=== PATIENT | male | born 1990 | race Caucasian/White ===

== ENCOUNTER 2016-08-06 03:14 | Emergency (ER) | payer BC ==
[2016-08-06 03:22] VITALS: BP 133/55
[2016-08-06] MEDS ORDERED: Sodium Chloride 0.9% 10 ML Syringe FLUSH PRN (03:57)
[2016-08-06] MEDS ORDERED: fentaNYL 100 MCG/2 ML SDV IVPUSH ONE (03:57)
--- NOTE | 2016-08-06 03:59 | EDM.PDOC ---
ED HPI GENERAL MEDICAL PROBLEM - General Chief Complaint: General Stated Complaint: L) shoulder dislocation Time Seen by Provider: 08/06/16 03:21 Source of Information: Reports: Patient History Limitations: Reports: No limitations - History of Present Illness INITIAL COMMENTS - FREE TEXT/NARRATIVE: Patient says he has long history of shoulder dislocation issues involving left shoulder. Said he "moved it wrong" tonight and shoulder dislocated. Prefers to not be given any medications, and said he just needs someone to "pull it" and fix it. Complains of pain in left shoulder, limited ROM. No numbness in arm. No other complaints. Smells of alcohol and confirms that he had alcohol earlier this evening. Left Shoulder Pain Score (Numeric/FACES): 10 - Related Data Allergies Allergy/AdvReac Type Severity Reaction Status Date / Time No Known Allergies Allergy Verified 08/06/16 03:18 Home Meds: Home Meds Calcium Carbonate [Tums Extra Strength] 1,500 mg PO ASDIRECTED PRN 07/13/13 [ History] Omeprazole [Prilosec] 20 mg PO QAM 07/20/13 [History] Past Medical History Gastrointestinal History: Reports: GERD Musculoskeletal History: Reports: Other (see below) (shoulder dislocations) Social & Family History - Tobacco Use Years of Tobacco use: 8 (Previous use of 1 pack per day) Second Hand Smoke Exposure: Yes - Alcohol Use Days Per Week of Alcohol Use: 1 Number of Drinks Per Day: 3 Total Drinks Per Week: 3 - Recreational Drug Use Recreational Drug Use: Yes Drug Use in Last 12 Months: Yes Recreational Drug Type: Reports: Marijuana/Hashish Recreational Drug Use Frequency: Weekly - Living Situation & Occupation Living situation: Reports: single, with significant other (Fiance) Occupation: employed ([employer]) ED ROS GENERAL - Review of Systems Review Of Systems: ROS reveals no pertinent complaints other than HPI. ED EXAM, GENERAL - Physical Exam Exam: See Below Exam Limited By: Physical impairment (Patient guarding left arm/shoulder) General Appearance: alert, WD/WN, anxious, moderate distress Eye Exam: bilateral eye: EOMI, PERRL Respiratory/Chest: no respiratory distress Peripheral Pulses: 2+: radial (L), radial (R) Extremities: normal capillary refill, other (Left shoulder appears dislocated. Arm NVI. ) Neurological: alert, oriented, normal gait Psychiatric: anxious Skin Exam: Warm, Dry, Intact, Normal color Course - Vital Signs Last Recorded V/S: Last Vital Signs Temp 36.7 C 08/06/16 03:21 Pulse 86 08/06/16 03:21 Resp 22 H 08/06/16 03:21 BP 133/55 L 08/06/16 03:21 Pulse Ox 97 08/06/16 03:21 - Orders/Labs/Meds Orders: Active Orders 24 hr Category Date Time Status Shoulder 1V Lt [CR] Stat Exams 08/06/16 03:22 Taken Sodium Chloride 0.9% [Saline Flush] Med 08/06/16 03:57 Ordered 10 ml FLUSH ASDIRECTED PRN Saline Lock Insert [OM.PC] Stat Oth 08/06/16 03:57 Ordered Medication Orders Sodium Chloride (Saline Flush) 10 ml FLUSH ASDIRECTED PRN PRN Reason: Keep Vein Open Meds: Medications Generic Name Dose Route Start Last Admin Trade Name Freq PRN Reason Stop Dose Admin Sodium Chloride 10 ml 08/06/16 03:57 Saline Flush FLUSH ASDIRECTED PRN Keep Vein Open Discontinued Medications Generic Name Dose Route Start Last Admin Trade Name Freq PRN Reason Stop Dose Admin Fentanyl 100 mcg 08/06/16 03:57 08/06/16 04:01 Sublimaze IVPUSH 08/06/16 03:58 100 mcg ONETIME ONE Administration - Radiology Interpretation Free Text/Narrative:: Xray confirmed dislocated shoulder. - Re-Assessments/Exams Free Text/Narrative Re-Assessment/Exam: 08/06/16 04:12 Fentanyl given to help with pain and relaxation. Patient placed prone with weights attached to left hand. Shoulder reduced with help of scapular manipulation. Patient placed in immobilizer. Extensive precautions given to patient, including wearing immobilizer faithfully and following up with a primary care provider. He is aware of the high likelihood of dislocating the shoulder again if he does not wear the immobilizer appropriately as well as if he does not follow up with orthopedics. Departure - Departure Time of Disposition: 05:00 Disposition: Home, Self-Care 01 Condition: good Clinical Impression: Shoulder dislocation, recurrent Qualifiers: Laterality: left Qualified Code(s): M24.412 - Recurrent dislocation, left shoulder Instructions: Shoulder Dislocation, [id number], How to Use a Shoulder Immobilizer Forms: ED Department Discharge, Return to Work/School Form Additional Instructions: Wear shoulder immobilizer. Make appointment to follow up with local clinic for recheck and referral to Ortho as well as arrangement for higher quality and more comfortable immobilizer. Do not take off the immobilizer until Ortho tells you as you have much higher likelihood of re-dislocating shoulder. Ibuprofen or Tylenol or Aleve for pain. Ice PRN. - My Orders Last 24 Hours: My Active Orders 08/06/16 03:22 Shoulder 1V Lt [CR] Stat 08/06/16 03:57 Sodium Chloride 0.9% [Saline Flush] 10 ml FLUSH ASDIRECTED PRN Saline Lock Insert [OM.PC] Stat - Assessment/Plan Last 24 Hours: My Active Orders 08/06/16 03:22 Shoulder 1V Lt [CR] Stat 08/06/16 03:57 Sodium Chloride 0.9% [Saline Flush] 10 ml FLUSH ASDIRECTED PRN Saline Lock Insert [OM.PC] Stat
== END 2016-08-06 04:50 | disposition home or self-care (01) ==
LOC: LL.ED 03:14
DX: M24.412 Recurrent dislocation, left shoulder (principal); K21.9 Gastro-esophageal reflux disease without esophagitis
CPT/HCPCS: 23650; 73020; 96374; 99283; J3010

== ENCOUNTER 2017-05-21 14:49 | Emergency (ER) | payer BC, OTHER ==
[2017-05-21] MEDS ORDERED: Morphine 10 MG/ML Syringe IVPUSH ONE (14:56)
[2017-05-21] MEDS ORDERED: Ondansetron 4 MG/2 ML SDV IVPUSH ONE (14:56)
[2017-05-21] MEDS ORDERED: Sodium Chloride 0.9% 10 ML Syringe FLUSH PRN (14:57)
[2017-05-21] MEDS ORDERED: fentaNYL 100 MCG/2 ML SDV IVPUSH ONE (15:24)
[2017-05-21] MEDS ORDERED: Ketorolac 30 MG/ML SDV IVPUSH ONE (15:49)
--- NOTE | 2017-05-21 15:54 | EDM.PDOC ---
ED HPI GENERAL MEDICAL PROBLEM - General Chief Complaint: Upper Extremity Injury/Pain Stated Complaint: left shoulder pain/dislocation Time Seen by Provider: 05/21/17 15:18 Source of Information: Reports: Patient History Limitations: Reports: No Limitations - History of Present Illness INITIAL COMMENTS - FREE TEXT/NARRATIVE: Patient with history of recurrent left shoulder dislocations was at work today and popped shoulder out of place while pushing a cart. This has happened multiple times to him since his original injury that occurred in high school while playing two handed football in gym class. No numbness or tingling of involved limb. Has pain around left shoulder that is nonradiating. No other complaints. Left Shoulder Pain Score (Numeric/FACES): 8 - Related Data Allergies Allergy/AdvReac Type Severity Reaction Status Date / Time No Known Allergies Allergy Verified 05/21/17 14:50 Home Meds: Home Meds Calcium Carbonate [Tums Extra Strength] 1,500 mg PO ASDIRECTED PRN 07/13/13 [ History] Omeprazole [Prilosec] 20 mg PO QAM 07/20/13 [History] Past Medical History Gastrointestinal History: Reports: GERD Musculoskeletal History: Reports: Other (See Below) Other Musculoskeletal History: reoccurant L) shoulder dislocation Social & Family History - Tobacco Use Smoking Status *Q: Current Every Day Smoker Years of Tobacco use: 8 (Previous use of 1 pack per day) Packs/Tins Daily: 1 Second Hand Smoke Exposure: Yes - Caffeine Use Caffeine Use: Reports: Energy Drinks, Soda - Alcohol Use Days Per Week of Alcohol Use: 1 Number of Drinks Per Day: 3 Total Drinks Per Week: 3 - Recreational Drug Use Recreational Drug Use: Yes Drug Use in Last 12 Months: Yes Recreational Drug Type: Reports: Marijuana/Hashish Recreational Drug Use Frequency: Weekly - Living Situation & Occupation Living situation: Reports: Single, with Significant Other Occupation: Employed Review of Systems - Review of Systems Review Of Systems: ROS reveals no pertinent complaints other than HPI. ED EXAM, GENERAL - Physical Exam Exam: See Below Exam Limited By: No Limitations General Appearance: Alert, WD/WN, Moderate Distress, Other (protecting left arm/ carrying weight of arm using his right arm. ) Eye Exam: Bilateral Eye: EOMI, PERRL Head: Atraumatic, Normocephalic Neck: Normal Inspection, Supple, Non-Tender, Full Range of Motion Respiratory/Chest: No Respiratory Distress Cardiovascular: Normal Peripheral Pulses Peripheral Pulses: 2+: Radial (L), Radial (R) Extremities: Normal Capillary Refill, Other (Deformity of left shoulder suggesting dislocation) Neurological: Alert, Oriented, Normal Cognition, Normal Gait Psychiatric: Anxious Skin Exam: Warm, Dry, Intact, Normal Color ED TRAUMA EXTREMITY PROCEDURES - Joint Reduction Site: Shoulder (L) Sedation: Other (Fentanyl 100mg IV) Pre-Procedure NV Status: Normal Post-Procedure NV Status: Normal Technique: Other (Raf's technique) Number of Attempts: 1 Post-Reduction Imaging: Completely Reduced Joint Reduction Complications: No Course - Orders/Labs/Meds Orders: Active Orders 24 hr Category Date Time Status Shoulder 1V Lt [CR] Stat Exams 05/21/17 14:56 Taken Shoulder 1V Lt [CR] Stat Exams 05/21/17 15:36 Ordered Sodium Chloride 0.9% [Saline Flush] Med 05/21/17 14:57 Active 10 ml FLUSH ASDIRECTED PRN Saline Lock Insert [OM.PC] Routine Oth 05/21/17 14:57 Ordered Medication Orders Sodium Chloride (Saline Flush) 10 ml FLUSH ASDIRECTED PRN PRN Reason: Keep Vein Open Last Admin: 05/21/17 15:18 Dose: 10 ml Meds: Medications Generic Name Dose Route Start Last Admin Trade Name Freq PRN Reason Stop Dose Admin Sodium Chloride 10 ml 05/21/17 14:57 05/21/17 15:18 Saline Flush FLUSH 10 ml ASDIRECTED PRN Administration Keep Vein Open Discontinued Medications Generic Name Dose Route Start Last Admin Trade Name Freq PRN Reason Stop Dose Admin Fentanyl 100 mcg 05/21/17 15:24 05/21/17 15:27 Sublimaze IVPUSH 05/21/17 15:25 100 mcg ONETIME ONE Administration Ketorolac Tromethamine 30 mg 05/21/17 15:49 05/21/17 15:52 Toradol IVPUSH 05/21/17 15:50 30 mg ONETIME ONE Administration Morphine Sulfate 5 mg 05/21/17 14:56 05/21/17 15:03 Morphine IVPUSH 05/21/17 14:57 5 mg ONETIME ONE Administration Ondansetron HCl 4 mg 05/21/17 14:56 05/21/17 15:03 Zofran IVPUSH 05/21/17 14:57 4 mg ONETIME ONE Administration - Radiology Interpretation Free Text/Narrative:: Xray showed anterior dislocation of left shoulder. Postreduction films confirmed successful reduction of dislocation. - Re-Assessments/Exams Free Text/Narrative Re-Assessment/Exam: 05/21/17 16:14 Patient has sling at home that he can use for the next week to help protect the shoulder joint. Work restriction form filled out and given to patient. He is to follow up next week with primary provider for recheck. Departure - Departure Time of Disposition: 15:54 Disposition: Home, Self-Care 01 Condition: Good Clinical Impression: Shoulder dislocation, recurrent Qualifiers: Laterality: left Qualified Code(s): M24.412 - Recurrent dislocation, left shoulder - Discharge Information Instructions: Shoulder Dislocation, [id number] Referrals: PCP,None [Primary Care Provider] - Forms: ED Department Discharge Additional Instructions: Wear sling for comfort and protection for the next week. Recheck with primary clinic next or Wednesday. Tylenol or Ibuprofen or Aleve for pain as needed. Ice affected area frequently to help with inflammation and pain. - My Orders Last 24 Hours: My Active Orders 05/21/17 14:56 Shoulder 1V Lt [CR] Stat 05/21/17 14:57 Sodium Chloride 0.9% [Saline Flush] 10 ml FLUSH ASDIRECTED PRN Saline Lock Insert [OM.PC] Routine 05/21/17 15:36 Shoulder 1V Lt [CR] Stat - Assessment/Plan Last 24 Hours: My Active Orders 05/21/17 14:56 Shoulder 1V Lt [CR] Stat 05/21/17 14:57 Sodium Chloride 0.9% [Saline Flush] 10 ml FLUSH ASDIRECTED PRN Saline Lock Insert [OM.PC] Routine 05/21/17 15:36 Shoulder 1V Lt [CR] Stat
[2017-05-21 16:28] VITALS: BP 125/66
== END 2017-05-21 16:10 | disposition home or self-care (01) ==
LOC: LL.ED 14:49
DX: M24.412 Recurrent dislocation, left shoulder (principal); F17.210 Nicotine dependence, cigarettes, uncomplicated
CPT/HCPCS: 23650; 73020; 96374; 96375; 99284; J1885; J2270; J2405; J3010; J7050

== ENCOUNTER 2017-10-14 07:41 | Emergency (ER) | payer BC, OTHER ==
--- NOTE | 2017-10-14 08:17 | EDM.PDOC ---
ED HPI GENERAL MEDICAL PROBLEM - General Chief Complaint: Upper Extremity Injury/Pain Stated Complaint: left thumb/hand pain Time Seen by Provider: 10/14/17 08:10 Source of Information: Reports: Patient, Family (Mother), Old Records ([facility] chart/EMR) History Limitations: Reports: No Limitations - History of Present Illness INITIAL COMMENTS - FREE TEXT/NARRATIVE: The patient drove himself to the emergency room via private automobile for evaluation of persistent 7/10 left thumb pain with movement with constant 3/10 throbbing type pain at rest. the patient landed on his left thumb on 10/08 at an unknown time while riding [employer] with a friend. He also had a similar injury when he tripped carrying his niece on his shoulders at 19:00 hours on 10/11. Minimal head injury at that time with no history of loss of consciousness, change in mental status, headaches, visual changes, nausea, neck/back pain, paresthesias, other injury or neurologic deficits. No recent history of abdominal pain, heartburn, nausea, diarrhea, melena, gross hematochezia, or any food intolerance, including fatty foods, etc.. The patient also denies any recent fever, cough, wheezing, dyspnea, etc.. He has not taken any medications for his symptoms during the last 48 hours with previous when necessary ibuprofen use. Onset: Unknown/Unsure Onset Date: 10/08/17 Duration: Constant Location: Reports: Upper Extremity, Left. 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 Denies: Cholelithiasis, Chronic Constipation, Chronic Diarrhea, Fecal Incontinence, Gastritis, GI Bleed, Hepatitis, Jaundice, Pancreatitis, PUD Musculoskeletal History: Reports: Fracture, Other (See Below). Denies: Arthritis, Back Pain, Chronic, Gout, Neck Pain, Chronic, Osteoarthritis, RA, SLE Other Musculoskeletal History: Recurrent L) shoulder dislocations. Possible previous phalangeal fracture of digit #4 of the left footdate unknown. Previously suspected left hand first metacarpal fracture on 01/27/06 with negative x-ray report and probable sprain. - Past Surgical History Male Surgical History: Reports: Circumcision, Other (See Below) Other Male Surgeries/Procedures: Circumcision as an infant Social & Family History - Tobacco Use Smoking Status *Q: Current Every Day Smoker Tobacco Use Within Last Twelve Months: Cigarettes Years of Tobacco use: 12 Packs/Tins Daily: 1 Packs/Tins Daily Comment: Patient has been smoking 11 1/2 packs per day since age 14 Used Tobacco, but Quit: No Smoking Cessation Information Provided To Patient: Yes Second Hand Smoke Exposure: No Second Hand Smoke Education Provided: No - Caffeine Use Caffeine Use: Reports: Energy Drinks, Soda - Living Situation & Occupation Living situation: Reports: Single, Alone Occupation: Employed ([employer]) Review of Systems - Review of Systems Review Of Systems: ROS reveals no pertinent complaints other than HPI. ED EXAM, GENERAL - Physical Exam Exam: See Below Exam Limited By: No Limitations General Appearance: Alert, WD/WN, No Apparent Distress Head: Atraumatic, Normocephalic. No: Facial Swelling, Facial Tenderness, Sinus Tenderness Neck: Normal Inspection, Supple, Non-Tender, Full Range of Motion. No: Lymphadenopathy (L), Lymphadenopathy (R), Thyromegaly Respiratory/Chest: No Respiratory Distress, Lungs Clear, Normal Breath Sounds, No Accessory Muscle Use, Chest Non-Tender. No: Pleural Rub, Retractions Cardiovascular: Normal Peripheral Pulses, Regular Rate, Rhythm, No Edema, No Gallop, No JVD, No Murmur, No Rub. No: Gallop/S3, Gallop/S4, Friction Rub Peripheral Pulses: 2+: Radial (L), Radial (R) GI/Abdominal: Normal Bowel Sounds, Soft, Non-Tender, No Organomegaly, No Distention, No Abnormal Bruit, No Mass, Pelvis Stable. No: Guarding (Male) Exam: Deferred Rectal (Males) Exam: Deferred Back Exam: Normal Inspection, Full Range of Motion. No: CVA Tenderness (L), CVA Tenderness (R), Muscle Spasm Extremities: Normal Range of Motion, No Pedal Edema, Normal Capillary Refill, Other (Mild palpation pain with no significant local injury, swelling, ecchymosis, deformity, crepitation, etc. in the thenar region of the left hand. No snuffbox tenderness.). No: Joint Swelling, Jorge A's Sign Neurological: Alert, Oriented, CN II-XII Intact, Normal Cognition, Normal Gait, No Motor/Sensory Deficits, Other (No clinical orthostasis) Psychiatric: Normal Affect, Normal Mood Skin Exam: Warm, Dry, Intact, Normal Color, No Rash, Tattoo(s). No: Diaphoretic , Ecchymosis, Lymphangitis, Wound/Incision Lymphatic: No Adenopathy Course - Vital Signs Last Recorded V/S: Last Vital Signs Temp 36.7 C 10/14/17 09:01 Pulse 74 10/14/17 09:01 Resp 14 10/14/17 09:01 BP 99/56 L 10/14/17 09:01 Pulse Ox 98 10/14/17 09:01 Vital Signs - 24 hr 10/14/17 09:01 Temperature [ 36.7 C Temporal] Pulse, 74 Peripheral [ Pulse Oximetry] Respiratory 14 Rate Blood Pressure 99/56 L [Left Upper Arm ] O2 Sat by Pulse 98 Oximetry - Orders/Labs/Meds Orders: Active Orders 24 hr Category Date Time Status Hand Comp Min 3V Lt [CR] Stat Exams 10/14/17 08:17 Taken Obtain Past Medical Record [OM.PC] Routine Oth 10/14/17 08:17 Active Labs: None Meds: None - Radiology Interpretation Free Text/Narrative:: X-rays of the left hand, complete, shows no evidence of fracture, dislocation, etc. Departure - Departure Time of Disposition: 09:15 Disposition: Home, Self-Care 01 Preliminary Cause of *Q: Sepsis & Multi System Organ Failure Clinical Impression: Tobacco abuse counseling, Gastroesophageal reflux disease Contusion of left hand Qualifiers: Encounter type: initial encounter Qualified Code(s): S60.222A - Contusion of left hand, initial encounter - Discharge Information Instructions: Finger Sprain, Adult, [id number] Referrals: Charlie Mckinley PA [Primary Care Provider] - Forms: ED Department Discharge, ED Return to Work/School Form Additional Instructions: 1. Follow up with your regular provider in 10-14 days as needed, if symptoms persist. 2. BenGay or equivalent, heating pad, and/or ice packs as directed. 3. Tylenol 650 mg by mouth every 4 hours and/or OTC ibuprofen 2-3 tabs by mouth every 6 hours with food as directed./needed. 4. Stop all tobacco use GINO as directed/per provided information and consider contacting Quit LIne, etc.. 5. Immediately after this visit verify that your cellular telephone's voicemail has been activated and is empty. Also verify that your home telephone 's answering machine is operating properly and has space to receive messages. Note that it is sometimes necessary for us to be able to contact you at a later date to discuss your medical care. - Problem List & Annotations (1) Contusion of left hand SNOMED Code(s): 2312381 Code(s): S60.222A - CONTUSION OF LEFT HAND, INITIAL ENCOUNTER Status: Acute Priority: High Current Visit: Yes Onset Date: 10/08/17 Annotation/ Comment:: Mild recurrent contusion and probable muscle sprain of his left thumb secondary to recurrent minor falls as above. Symptomatic relief as per discharge instructions. Patient is late going to work today and does feel that he can perform his normal work duties. Work excuse provided. Cavity restrictions , fall precautions, etc. discussed. Mild borderline hypotension with no clinical orthostasis at this time. Note history of energy drink use, which should be discontinued. Qualifiers: Encounter type: initial encounter Qualified Code(s): S60.222A - Contusion of left hand, initial encounter (2) Tobacco abuse counseling SNOMED Code(s): 716594883, 842780260, 203351263 Code(s): Z71.6 - TOBACCO ABUSE COUNSELING Status: Chronic Priority: Medium Current Visit: Yes Annotation/Comment:: Stop all tobacco use GINO as directed/per provided information and consider contacting Quit LIne, etc.. (3) Gastroesophageal reflux disease SNOMED Code(s): 336306727 Code(s): K21.9 - GASTRO-ESOPHAGEAL REFLUX DISEASE WITHOUT ESOPHAGITIS Status: Chronic Priority: Medium Current Visit: Yes Annotation/Comment:: Stable by patient history with current medical therapy Qualifiers: Esophagitis presence: without esophagitis Qualified Code(s): K21.9 - Gastro -esophageal reflux disease without esophagitis - Problem List Review Problem List Initiated/Reviewed/Updated: Yes - My Orders Last 24 Hours: My Active Orders 10/14/17 08:17 Hand Comp Min 3V Lt [CR] Stat Obtain Past Medical Record [OM.PC] Routine - Assessment/Plan Last 24 Hours: My Active Orders 10/14/17 08:17 Hand Comp Min 3V Lt [CR] Stat Obtain Past Medical Record [OM.PC] Routine Assessment:: As above Plan: As above. Extensive precautions were given to the patient and his mother, who are in agreement with the treatment plan. See Patient Instructions for further treatment and plan.
[2017-10-14 09:02] VITALS: BP 99/56
== END 2017-10-14 09:15 | disposition home or self-care (01) ==
LOC: LL.ED 07:41
DX: S60.222A Contusion of left hand, initial encounter (principal); K21.9 Gastro-esophageal reflux disease without esophagitis; Z79.899 Other long term (current) drug therapy; Z71.6 Tobacco abuse counseling; F17.210 Nicotine dependence, cigarettes, uncomplicated; W03.XXXA Other fall on same level due to collision with another person, initial encounter
CPT/HCPCS: 73130-LT; 99284

== ENCOUNTER 2021-06-16 07:11 | Emergency (ER) | payer BC, OTHER ==
[2021-06-16] MEDS ORDERED: Morphine 2 MG/ML SYRINGE IVPUSH ONE ×2 (08:14→08:58)
[2021-06-16] MEDS: Sodium Chloride 0.9% 10 ML Syringe FLUSH PRN ×3 (08:34→11:02)
[2021-06-16] MEDS ORDERED: fentaNYL 100 MCG/2 ML SDV IVPUSH ONE (10:56)
[2021-06-16] MEDS ORDERED: Ondansetron 4 MG/2 ML SDV IVPUSH ONE (10:56)
[2021-06-16] MEDS ORDERED: Midazolam 1 MG/ML 2 ML SDV IVPUSH ONE ×2 (10:56→11:11)
[2021-06-16] MEDS ORDERED: fentaNYL 50 MCG/ML SDV ONE (11:19)
[2021-06-16] MEDS ORDERED: fentaNYL 50 MCG/ML SDV IVPUSH ONE (11:25)
[2021-06-16 11:55] VITALS: BP 112/52; PULSE 85
== END 2021-06-16 11:45 ==
LOC: LL.ED 07:11
DX: S43.015A Anterior dislocation of left humerus, initial encounter (principal); S43.035A Inferior dislocation of left humerus, initial encounter; F17.210 Nicotine dependence, cigarettes, uncomplicated; X50.1XXA Overexertion from prolonged static or awkward postures, initial encounter; Y93.01 Activity, walking, marching and hiking
CPT/HCPCS: 73030-LT; 96374; 96375; 96376; 99152; 99153; 99283; 99284-25; J2250; J2270; J2405; J3010; J3360